=== PATIENT | male | born 1980 | race Caucasian/White ===

== ENCOUNTER 2017-06-27 23:31 | Observation (INO) ==
--- NOTE | 2017-06-28 00:20 | Emergency Department Note ---
Disposition Clinical Impression: Hyperglycemia, Alena, Suicidal ideation, Homicidal ideation, Visual hallucination, Auditory hallucinations Leukocytosis Qualifiers: Leukocytosis type: unspecified Qualified Code(s): D72.829 - Elevated white blood cell count, unspecified Disposition: Admitted As Inpatient Condition: Good Referrals: NONE,PCP [Primary Care Provider] - Forms: ED Satisfaction Letter Time of Disposition: 05:48 Psych HPI - General Chief Complaint: ED Psychiatric Symptoms Stated Complaint: Insomnia/Hearing Voice Time Seen by Provider: 06/27/17 23:52 Source: patient, family Mode of arrival: ambulatory Limitations: no limitations Nursing Notes Reviewed: Yes Vital Signs Reviewed: Yes - History of Present Illness HPI Narrative: Patient is a 37-year-old male with past medical history of a polar disorder, schizophrenia, epilepsy. He presents today accompanied by due to concern for visual and auditory hallucinations, suicidal and homicidal ideation. states that the patient has not slept for more than a few hours over the past week. He was recently given steroids due to rash within the past week at urgent care. Over the past few hours, the patient has become more agitated, believes that his neighbors are making noise that is preventing him from sleeping. He says he feels like hurting himself or his neighbors. states that the neighbors were not making any noise and that he is hearing and seeing things, has been talking to himself for the past 24 hours. She does state that he is supposed to take Lamictal daily for seizures but has not been taking appropriately. She states that his bottle is almost completely full. He also has diazepam that he takes occasionally as needed. She denies that he is on any daily bipolar or schizophrenia medications. She does admit that the patient has had multiple admissions to psychiatric services both here and at other hospitals in the past. Otherwise, no other somatic complaints, denies any chest pain, shortness of breath, nausea, vomiting, diarrhea, abdominal pain. No attempt at self-harm or congestion. - Related Data Home Medications Medication Instructions Recorded Confirmed diazePAM [Valium] 10 mg PO DAILY 10/06/15 10/06/15 Previous Rx's Medication Instructions Recorded LevETIRAcetam [Keppra] 500 mg PO BID 30 Days tablet 10/06/15 predniSONE [PredniSONE] 10 - 60 mg PO DAILY #42 tablet 06/18/17 Allergies Allergy/AdvReac Type Severity Reaction Status Date / Time risperidone Allergy See Verified 06/27/17 23:47 Comments All systems ED: reviewed and negative except as stated. Constitutional: Denies: fever Cardiovascular: Denies: chest pain Respiratory: Denies: cough, dyspnea Gastrointestinal: Denies: abdominal pain, nausea, vomiting, diarrhea Genitourinary: Denies: urgency, dysuria, frequency, hematuria Neurological: Denies: weakness, numbness, paresthesias Psychiatric: Reports: suicidal thoughts, homicidal thoughts, auditory hallucinations, visual hallucinations Past Medical History - Past Medical History Attestation: Yes The following information was validated with the patient. Source: patient Medical history: Reports: hypertension, seizures Psychiatric history: Reports: anxiety, bipolar, depression, schizophrenia, previous psychiatric hospitalization - Social History Smoking Status: Former smoker Smokeless Tobacco Status: No Alcohol use: Reports: occasionally Drug use: Reports: none Physical Exam - General Limitations: other General appearance: alert, in no apparent distress, anxious - Head Head exam: atraumatic, normocephalic, normal inspection - Eye Eye exam: Present: normal appearance, PERRL, EOMI - ENT ENT exam: normal exam, normal oropharynx, mucous membranes moist - Neck Neck exam: Present: normal inspection, full ROM, trachea midline - Chest Chest inspection: Present: normal inspection, symmetric chest wall rise - Respiratory Respiratory exam: Present: normal lung sounds bilaterally - Cardiovascular Cardiovascular exam: Present: regular rate, normal rhythm, normal heart sounds - Abdominal Exam Abdominal exam: Present: soft, Non-Tender. Absent: tenderness, distention, guarding, rebound, rigidity - Extremities Exam Extremities exam: Present: normal inspection, full ROM. Absent: tenderness, pedal edema - Neurological Exam Neurological exam: Present: alert, oriented X3 - Psychiatric Psychiatric exam: Present: anxious, manic, homicidal ideation, suicidal ideation , other (Patient is manic, is having paranoid delusions, admits that he is homicidal, suicidal, hearing voices and having visual hallucinations.) - Skin Skin exam: Present: warm, dry, intact, normal color Course Course Narrative: Patient is manic, is having paranoid delusions, admits that he is homicidal, suicidal, hearing voices and having visual hallucinations. Patient is tachycardic, hypertensive. Otherwise, the rest of the physical exam was benign. Lungs clear to auscultation, abdomen soft and benign. We will perform medical clearance labs and then consult psychiatric services. [facility] slip has been signed and placed on chart. Sitter ordered. 05:48 patient has been seen and evaluated by behavioral health. They have spoke with Dr. Roldan, psychiatrist, who feels that patient needs to be admitted for medical clearance. I spoke with Dr. Roldan myself. He was concerned for Frederick-Panda syndrome. However, the patient currently has no rash, he does not have any mucosal involvement either. This was discussed with psychiatrist who still had concern for SJS. He feels that steroids may be playing a part in current presentation, concerned for steroid delirium at this time. He recommends medical admission at this time for further care. Patient does have a leukocytosis, elevated hemoglobin, creatinine 1.31 that are all likely secondary to dehydration and hemoconcentration. He also has a glucose of 218. I gave the patient 1 L fluid bolus. Otherwise, no other majorly concerning labs. We will admit to the hospitalist for further care. Vital Signs Temperature 98.8 F 06/27/17 23:40 Pulse Rate 122 06/27/17 23:40 Respiratory Rate 18 06/27/17 23:40 Blood Pressure 178/106 06/27/17 23:40 O2 Sat by Pulse Oximetry 96 06/27/17 23:40 Temperature 98.8 F 06/27/17 23:40 Pulse Rate 98 06/28/17 03:24 Respiratory Rate 16 06/28/17 03:24 Blood Pressure 172/97 06/28/17 03:24 O2 Sat by Pulse Oximetry 97 06/28/17 03:24 Oxygen Delivery Oxygen Delivery Room Air Psych - MDM Narrative Medical decision making narrative: Patient is manic, is having paranoid delusions, admits that he is homicidal, suicidal, hearing voices and having visual hallucinations. Patient is tachycardic, hypertensive. Otherwise, the rest of the physical exam was benign. Lungs clear to auscultation, abdomen soft and benign. We will perform medical clearance labs and then consult psychiatric services. [facility] slip has been signed and placed on chart. Sitter ordered. 05:48 patient has been seen and evaluated by [facility]. They have spoke with Dr. Roldan, psychiatrist, who feels that patient needs to be admitted for medical clearance. I spoke with Dr. Roldan myself. He was concerned for Frederick-Panda syndrome. However, the patient currently has no rash, he does not have any mucosal involvement either. This was discussed with psychiatrist who still had concern for SJS. He feels that steroids may be playing a part in current presentation, concerned for steroid delirium at this time. He recommends medical admission at this time for further care. Patient does have a leukocytosis, elevated hemoglobin, creatinine 1.31 that are all likely secondary to dehydration and hemoconcentration. He also has a glucose of 218. I gave the patient 1 L fluid bolus. Otherwise, no other majorly concerning labs. We will admit to the hospitalist for further care. - Medical Records Medical records reviewed: Yes I reviewed the patient's medical records. - Lab Data Lab results reviewed: Yes I reviewed the patient's lab results. Result diagrams: 06/28/17 00:20 06/28/17 00:20 Lab Results 06/28/17 06/28/17 06/28/17 Range/Units 00:07 00:07 00:20 WBC 15.1 H (4.3-11.1) K/mcL RBC 5.60 H (4.19-5.50) M/mcL Hgb 17.9 H (12.9-16.9) g/dL Hct 50.6 H (37.5-50.1) % MCV 90.4 (83.0-100.0) fL MCH 32.0 (28.0-33.3) pg MCHC 35.4 (31.6-35.5) g/dL RDW 12.2 (11.5-14.5) % Plt Count 249 (140-400) K/mcL MPV 10.2 (9.4-12.4) fL Immature Gran % 0.7 (0-4) % Seg Neutrophils % 90.8 % Lymphocytes % 5.1 % Monocytes % 2.9 % Eosinophils % 0.1 % Basophils % 0.4 % Neutrophils # 13.7 H (1.6-8.9) K/mcL Lymphocytes # 0.8 (0.6-4.6) K/mcL Monocytes # 0.4 (0.0-1.3) K/mcL Eosinophils # 0.0 (0.0-0.6) K/mcL Basophils # 0.1 (0.0-0.2) K/mcL Sodium (136-145) mEq/L Potassium (3.5-5.1) mEq/L Chloride (98-107) mEq/L Carbon Dioxide (23-29) mEq/L BUN (6-20) mg/dL Creatinine (0.70-1.30) mg/dL Est GFR ( Amer) (> 60) Est GFR (Non-Af Amer) (> 60) BUN/Creatinine Ratio (6-26) Glucose (70-105) mg/dL Calculated Osmolality (280-300) Calcium (8.6-10.3) mg/dL TSH (0.340-5.600) mcIU/mL Urine Color Dark Yellow (Yellow) Urine Clarity Cloudy A (Clear) Urine pH 6.0 (5.0-8.0) pH Units Ur Specific [place] 1.029 H (1.010-1.025) Urine Protein 30 H (Neg-Trace) mg/dL Urine Glucose (UA) Normal (Normal) mg/dL Urine Ketones 15 H (Negative) mg/dL Urine Blood Small H (Negative) Urine Nitrite Negative (Negative) Urine Bilirubin Negative (Negative) Urine Urobilinogen Normal (Normal) mg/dL Ur Leukocyte Esterase Negative (Negative) Urine Microscopic RBC 5-15 H (0-3) per hpf Urine Microscopic WBC 0-3 (0-3) per hpf Ur Squamous Epith Cells Many H (None-Few) per lpf Urine Bacteria None Seen (None-Few) per hpf Hyaline Casts Moderate H (None-Few) per lpf Salicylates (15.0-30.0) mg/dL Urine Opiates Screen Negative (Bjwyal=489) ng/mL Acetaminophen (10-30) mcg/mL Ur Barbiturates Screen Negative (Wyywwq=895) ng/mL Ur Phencyclidine Scrn Negative (Cutoff=25) ng/mL Ur Amphetamines Screen Negative (Bzuive=6813) ng/mL U Benzodiazepines Scrn Positive H (Ibselm=970) ng/mL Urine Cocaine Screen Negative (Cutoff= 300) ng/mL U Marijuana (THC) Screen Negative (Cutoff = 50) ng/mL Ethyl Alcohol (0-10) mg/dL 06/28/17 06/28/17 Range/Units 00:20 00:20 WBC (4.3-11.1) K/mcL RBC (4.19-5.50) M/mcL Hgb (12.9-16.9) g/dL Hct (37.5-50.1) % MCV (83.0-100.0) fL MCH (28.0-33.3) pg MCHC (31.6-35.5) g/dL RDW (11.5-14.5) % Plt Count (140-400) K/mcL MPV (9.4-12.4) fL Immature Gran % (0-4) % Seg Neutrophils % % Lymphocytes % % Monocytes % % Eosinophils % % Basophils % % Neutrophils # (1.6-8.9) K/mcL Lymphocytes # (0.6-4.6) K/mcL Monocytes # (0.0-1.3) K/mcL Eosinophils # (0.0-0.6) K/mcL Basophils # (0.0-0.2) K/mcL Sodium 133 L (136-145) mEq/L Potassium 3.8 (3.5-5.1) mEq/L Chloride 100 (98-107) mEq/L Carbon Dioxide 22 L (23-29) mEq/L BUN 19 (6-20) mg/dL Creatinine 1.31 H (0.70-1.30) mg/dL Est GFR ( Amer) > 60 (> 60) Est GFR (Non-Af Amer) > 60 (> 60) BUN/Creatinine Ratio 15 (6-26) Glucose 218 H (70-105) mg/dL Calculated Osmolality 285 (280-300) Calcium 9.6 (8.6-10.3) mg/dL TSH 1.759 (0.340-5.600) mcIU/mL Urine Color (Yellow) Urine Clarity (Clear) Urine pH (5.0-8.0) pH Units Ur Specific [place] (1.010-1.025) Urine Protein (Neg-Trace) mg/dL Urine Glucose (UA) (Normal) mg/dL Urine Ketones (Negative) mg/dL Urine Blood (Negative) Urine Nitrite (Negative) Urine Bilirubin (Negative) Urine Urobilinogen (Normal) mg/dL Ur Leukocyte Esterase (Negative) Urine Microscopic RBC (0-3) per hpf Urine Microscopic WBC (0-3) per hpf Ur Squamous Epith Cells (None-Few) per lpf Urine Bacteria (None-Few) per hpf Hyaline Casts (None-Few) per lpf Salicylates < 5.0 L (15.0-30.0) mg/dL Urine Opiates Screen (Ulnwrp=299) ng/mL Acetaminophen < 1.0 L (10-30) mcg/mL Ur Barbiturates Screen (Jdtrkc=260) ng/mL Ur Phencyclidine Scrn (Cutoff=25) ng/mL Ur Amphetamines Screen (Apkoul=9365) ng/mL U Benzodiazepines Scrn (Nthgut=628) ng/mL Urine Cocaine Screen (Cutoff= 300) ng/mL U Marijuana (THC) Screen (Cutoff = 50) ng/mL Ethyl Alcohol < 10 (0-10) mg/dL - EKG Data EKG attestation: Yes I reviewed and interpreted this EKG. EKG results narrative: 06/28/2017 at 06:00. Sinus tachycardia. Rate 137. OK 140. QRS 100. QTC 365. No acute ST elevation or depression. Mild left axis deviation. Psychiatric Medical Clearance - Medical Clearance Checklist Medical History: Hyperglycemia (Acute) Leukocytosis (Acute) Alena (Acute) Suicidal ideation (Acute) Homicidal ideation (Acute) Visual hallucination (Acute) Auditory hallucinations (Acute) Generalized seizure (Inactive) Rash and nonspecific skin eruption (Inactive) No Social History Section defined Current Vitals: Last Vital Signs Temp 98.8 F 06/27/17 23:40 Pulse 98 06/28/17 03:24 Resp 16 06/28/17 03:24 BP 172/97 06/28/17 03:24 Pulse Ox 97 06/28/17 03:24 Psychiatric Lab Panel: Drug Levels and Toxicity 06/28/17 06/28/17 00:07 00:20 Urine Opiates Screen Negative Acetaminophen < 1.0 L Ur Barbiturates Screen Negative Ur Phencyclidine Scrn Negative Ur Amphetamines Screen Negative U Benzodiazepines Scrn Positive H Urine Cocaine Screen Negative U Marijuana (THC) Screen Negative Ethyl Alcohol < 10 Abnormal Labs: Abnormal lab results WBC 15.1 K/mcL (4.3-11.1) H 06/28/17 00:20 RBC 5.60 M/mcL (4.19-5.50) H 06/28/17 00:20 Hgb 17.9 g/dL (12.9-16.9) H 06/28/17 00:20 Hct 50.6 % (37.5-50.1) H 06/28/17 00:20 Neutrophils # 13.7 K/mcL (1.6-8.9) H 06/28/17 00:20 Sodium 133 mEq/L (136-145) L 06/28/17 00:20 Carbon Dioxide 22 mEq/L (23-29) L 06/28/17 00:20 Creatinine 1.31 mg/dL (0.70-1.30) H 06/28/17 00:20 Glucose 218 mg/dL (70-105) H 06/28/17 00:20 Urine Clarity Cloudy (Clear) A 06/28/17 00:07 Ur Specific [place] 1.029 (1.010-1.025) H 06/28/17 00:07 Urine Protein 30 mg/dL (Neg-Trace) H 06/28/17 00:07 Urine Ketones 15 mg/dL (Negative) H 06/28/17 00:07 Urine Blood Small (Negative) H 06/28/17 00:07 Urine Microscopic RBC 5-15 per hpf (0-3) H 06/28/17 00:07 Ur Squamous Epith Cells Many per lpf (None-Few) H 06/28/17 00:07 Hyaline Casts Moderate per lpf (None-Few) H 06/28/17 00:07 Salicylates < 5.0 mg/dL (15.0-30.0) L 06/28/17 00:20 Acetaminophen < 1.0 mcg/mL (10-30) L 06/28/17 00:20 U Benzodiazepines Scrn Positive ng/mL (Bifyah=555) H 06/28/17 00:07 Statement of Medical Clearance: I have evaluated the patient, reviewed diagnostic information, and certify that the patient's medical condition is sufficiently stable that transfer to the psychiatric unit does not pose a significant risk of deterioration. S.B.A.R. - S.B.A.R. Situation: Demographics, MOA Background: Presenting Complaint, Relevant PMH, Meds, & Allergies Assessment: Vital Signs, Course and respsone to treatment, Patient/Family Expectation, Pertinant Lab Results, Outstanding Labs Recommendation: Barrier(s) to disposition, Recommendation based on pending studies, treatments, or consults S.B.A.R. Repor Time: 05:51 Attestation Statement - Attestation Attestation: I examined this patient and my medical decision-making was reviewed with the Resident Physician. I agree with the documented findings, disposition and treatment plan as described except to the extent set forth below. Patient to the ED with acute psychosis. Off his bipolar meds. Patient awake in no distress on exam. No physical complaints. Heart regular lungs clear. Flat affect. Plan. Medical clearance and psych eval. Patient medically cleared. Evaluated by psych. Discussed with the psychiatrist Dr. Morales who wants him admitted medically. He states he thinks that he is having a reaction to Lamictal. He thinks that he has Frederick-Panda 's that is masked by the steroids. He thinks the steroids are causing an acute delirium. Patient will be admitted to the hospitalist with psychiatric consult. Patient reevaluated. He has no rash. He has no blistering or ulcerations of the mucosal surfaces.
[2017-06-28 00:21] LABS: Amphetamine Screen,Urine Negative ng/mL (Cutoff=1000); Barbiturate Screen,Urine Negative ng/mL (Cutoff=200); Benzodiazepines Screen,Urine Positive ng/mL (Cutoff=200); Cannabinoid Screen,Urine Negative ng/mL (Cutoff = 50); Cocaine Screen,Urine Negative ng/mL (Cutoff= 300); Opiate Screen,Urine Negative ng/mL (Cutoff=300); Phencyclidine Screen,Urine Negative ng/mL (Cutoff=25)
[2017-06-28 00:27] LABS: Basophils # 0.1 K/mcL (0.0-0.2); Basophils % 0.4 %; Eosinophils % 0.1 %; Hematocrit 50.6 % (37.5-50.1); Hemoglobin 17.9 g/dL (12.9-16.9); Immature Granulocytes % 0.7 % (0-4); Lymphocytes # 0.8 K/mcL (0.6-4.6); Lymphocytes % 5.1 %; Mean Corpuscular HGB Conc 35.4 g/dL (31.6-35.5); Mean Corpuscular Volume 90.4 fL (83.0-100.0); Mean Platelet Volume 10.2 fL (9.4-12.4); Monocytes # 0.4 K/mcL (0.0-1.3); Monocytes % 2.9 %; Neutrophils # 13.7 K/mcL (1.6-8.9); Platelet Count 249 K/mcL (140-400); Red Cell Distribution Width 12.2 % (11.5-14.5); Segmented Neutrophils % 90.8 %
[2017-06-28 00:29] LABS: Bilirubin,Urine Negative (Negative); Blood,Urine Small (Negative); Clarity,Urine Cloudy (Clear); Color,Urine Dark Yellow (Yellow); Glucose,Urine (UA) Normal (Normal); Ketones,Urine 15 mg/dL (Negative); Leukocyte Esterase,Urine Negative (Negative); Nitrite,Urine Negative (Negative); Protein,Urine 30 mg/dL (Neg-Trace); Specific Gravity,Urine 1.029 (1.010-1.025); Urobilinogen,Urine Normal (Normal)
[2017-06-28 00:32] LABS: Bacteria,Urine None Seen per hpf (None-Few); Hyaline Casts,Urine Moderate per lpf (None-Few); Squamous Epithelial Cell,Urine Many per lpf (None-Few); WBC,Urine 0-3 per hpf (0-3)
[2017-06-28 00:44] LABS: BUN/Creatinine Ratio 15 (6-26); Blood Urea Nitrogen 19 mg/dL (6-20); Calcium 9.6 mg/dL (8.6-10.3); Carbon Dioxide 22 mEq/L (23-29); Chloride 100 mEq/L (98-107); Glucose 218 mg/dL (70-105); Osmolality,Calculated 285 (280-300); Potassium 3.8 mEq/L (3.5-5.1); Sodium 133 mEq/L (136-145); eGFR For African Americans > 60 (> 60); eGFR For Non-African Americans > 60 (> 60)
[2017-06-28 00:46] LABS: Acetaminophen < 1.0 mcg/mL (10-30); Ethanol < 10 mg/dL (0-10); Salicylate < 5.0 mg/dL (15.0-30.0)
[2017-06-28] MEDS ORDERED: 0.9 % Sodium Chloride 1,000 ML IVC ONE (05:46)
[2017-06-28] MEDS ORDERED: *HR* LORazepam 2 MG/ML VIAL IVP ONE (06:06)
[2017-06-28] MEDS ORDERED: Naloxone 0.4 MG/ML INJ IVP PRN (08:49)
[2017-06-28] MEDS ORDERED: lamoTRIgine 100 MG TABLET PO SCH (09:30)
[2017-06-28] MEDS: diazePAM 10 MG TABLET PO SCH (09:49)
[2017-06-28 10:24] LABS: Basophils % 0.2 %; Hematocrit 48.1 % (37.5-50.1); Immature Granulocytes % 0.5 % (0-4); Lymphocytes # 1.3 K/mcL (0.6-4.6); Lymphocytes % 10.4 %; Mean Corpuscular HGB Conc 35.3 g/dL (31.6-35.5); Mean Corpuscular Volume 90.6 fL (83.0-100.0); Mean Platelet Volume 10.3 fL (9.4-12.4); Monocytes # 0.8 K/mcL (0.0-1.3); Monocytes % 6.7 %; Neutrophils # 10.2 K/mcL (1.6-8.9); Platelet Count 239 K/mcL (140-400); Red Blood Count 5.31 M/mcL (4.19-5.50); Red Cell Distribution Width 12.5 % (11.5-14.5); Segmented Neutrophils % 82.2 %
[2017-06-28 11:01] LABS: BUN/Creatinine Ratio 11 (6-26); Blood Urea Nitrogen 14 mg/dL (6-20); Calcium 9.1 mg/dL (8.6-10.3); Carbon Dioxide 24 mEq/L (23-29); Chloride 105 mEq/L (98-107); Glucose 119 mg/dL (70-105); Hemoglobin A1C 4.7 %; Magnesium 2.1 mg/dL (1.6-2.6); Osmolality,Calculated 288 (280-300); Phosphorous 3.8 mg/dL (2.7-4.5); Potassium 3.7 mEq/L (3.5-5.1); Sodium 138 mEq/L (136-145); eGFR For African Americans > 60 (> 60); eGFR For Non-African Americans > 60 (> 60)
--- NOTE | 2017-06-28 12:35 | Internal Med History&Physical ---
Date of Encounter: 06/28/17 Time of Encounter: 10:42 Assessment and Plan (1) Rash Current visit: Yes Status: Acute nonspecific clinically asymptomatic will closely monitor (2) Leukocytosis Current visit: Yes Status: Acute likely reactive given pt finished steroid course yesterday (06/27/17-information obtain from the records) Pt afebrile, no clinical signs present for underlying infectious etiology continue IV fluids will monitor off abx Restarted pt's home medications Qualifiers: Leukocytosis type: unspecified Qualified Code(s): D72.829 - Elevated white blood cell count, unspecified (3) Auditory hallucinations Current visit: Yes Status: Acute (4) Suicidal ideation Current visit: Yes Status: Acute no suicidal ideation expressed during my evaluation continue bedside sitter awaiting psych follow up (5) Homicidal ideation Current visit: Yes Status: Acute (6) Visual hallucination Current visit: Yes Status: Acute (7) DVT prophylaxis Current visit: Yes Status: Acute heparin SQ Internal Medicine - H&P: HPI Chief complaint: hallucinations/rash Admitted From: Home Plans for Post Hospital Care: Transfer Other History of present illness: Mr. Zhou is a 37 year old male with PMH of bipolar disorder, schizophrenia, and epilepsy who presented to the ER for evaluation of visual and auditory hallucinations, suicidal, and homicidal ideation. He was admitted to medicine service for anterior chest wall rash. Pt recently finished a course of abx and is noted to have leukocytosis and hyperglycemia. Pt seen and examined at bedside. Pt refusing to answer any questions, noted to have mild torso rash. Pt denies any discomfort, itchiness, pain. No clinical signs present concerning for kennedi marciano syndrome (which was the psychiatrist's concern). Past Med Surg Social Fam HX - Past Medical History Medical history: hypertension, seizures Psychiatric history: anxiety, bipolar, depression, schizophrenia, previous psychiatric hospitalization - Social History Smoking Status: Former smoker Smokeless Tobacco Status: No Alcohol use: occasionally Drug use: none Internal Medicine - H&P: Meds diazePAM [Valium] 10 mg PO DAILY 10/06/15 [History] Metoprolol [Lopressor] 25 mg PO DAILY 06/28/17 [History] lamoTRIgine [Lamictal] 100 mg PO BID 06/28/17 [History] predniSONE [PredniSONE] 0 mg PO AD 06/28/17 [History] 3 Allergy/AdvReac Type Severity Reaction Status Date / Time risperidone Allergy See Verified 06/27/17 23:47 Comments All Systems PM: A 10-system review of systems was performed and is negative for pertinent findings except as documented above in the HPI. - Constitutional Constitutional: as per HPI - Constitutional Vitals: Temp Pulse Resp BP Pulse Ox 98.5 F 102 17 147/92 95 06/28/17 08:20 06/28/17 08:20 06/28/17 08:20 06/28/17 08:20 06/28/17 08:20 General appearance: Present: A&O X 3, no acute distress - Head Head exam: Present: atraumatic, normocephalic - Eye Eye exam: Present: conjuntiva pink, sclera anicteric - Respiratory Respiratory exam: Present: CTAB. Absent: respiratory distress, wheezes - Cardiovascular Cardiovascular exam: Present: RRR, +S1, +S2. Absent: diastolic murmur, gallop, rubs, systolic murmur - GI/Abdominal GI/Abdominal exam: Present: normal bowel sounds, soft, no peritoneal signs. Absent: distended, tenderness - Extremities Exam Extremities exam: Present: warm, radial pulses palpable and symmetrical. Absent : calf tenderness, pedal edema - Skin Additional comments: mild erythema noted on anterior neck and chest Internal Med - H&P Results - Labs CBC & Chem 7: 06/28/17 09:56 06/28/17 09:56 Labs: Short CBC 06/28/17 Range/Units 09:56 WBC 12.4 H (4.3-11.1) K/mcL Hgb 17.0 H (12.9-16.9) g/dL Hct 48.1 (37.5-50.1) % Plt Count 239 (140-400) K/mcL Neutrophils # 10.2 H (1.6-8.9) K/mcL BMP 06/28/17 09:56 Sodium 138 Potassium 3.7 Chloride 105 Carbon Dioxide 24 BUN 14 Creatinine 1.23 Glucose 119 H Calcium 9.1
[2017-06-28] MEDS ORDERED: Ziprasidone injection 20 MG/ML VIAL IM ONE ×2 (12:48→14:30)
[2017-06-28] MEDS: *HR* Heparin 5,000 UNIT/ML VIAL SQ SCH ×2 (14:03→23:12)
[2017-06-28] MEDS ORDERED: *HR* LORazepam 2 MG/ML VIAL IVP PRN (15:14)
[2017-06-29] MEDS ORDERED: Haloperidol Lactate 5 MG/ML VIAL IVP ONE (01:28)
[2017-06-29] MEDS ORDERED: Ziprasidone injection 20 MG/ML VIAL IM ONE (01:32)
[2017-06-29] MEDS ORDERED: Haloperidol Lactate 5 MG/ML VIAL ONE (06:18)
[2017-06-29] MEDS ORDERED: *HR* LORazepam 2 MG/ML VIAL IVP ONE (06:20)
[2017-06-29] MEDS: *HR* Heparin 5,000 UNIT/ML VIAL SQ SCH ×2 (06:52→14:01)
[2017-06-29 08:37] LABS: Basophils # 0.1 K/mcL (0.0-0.2); Basophils % 0.6 %; Eosinophils % 0.2 %; Hematocrit 48.1 % (37.5-50.1); Hemoglobin 16.4 g/dL (12.9-16.9); Immature Granulocytes % 0.7 % (0-4); Lymphocytes # 1.7 K/mcL (0.6-4.6); Mean Corpuscular HGB Conc 34.1 g/dL (31.6-35.5); Mean Corpuscular Hemoglobin 31.7 pg (28.0-33.3); Mean Corpuscular Volume 92.9 fL (83.0-100.0); Mean Platelet Volume 10.3 fL (9.4-12.4); Monocytes # 0.8 K/mcL (0.0-1.3); Monocytes % 8.2 %; Neutrophils # 7.3 K/mcL (1.6-8.9); Platelet Count 214 K/mcL (140-400); Red Blood Count 5.18 M/mcL (4.19-5.50); Red Cell Distribution Width 12.4 % (11.5-14.5); Segmented Neutrophils % 73.3 %
[2017-06-29 09:04] LABS: BUN/Creatinine Ratio 11 (6-26); Blood Urea Nitrogen 17 mg/dL (6-20); Carbon Dioxide 25 mEq/L (23-29); Chloride 104 mEq/L (98-107); Glucose 129 mg/dL (70-105); Osmolality,Calculated 291 (280-300); Phosphorous 2.1 mg/dL (2.7-4.5); Potassium 3.6 mEq/L (3.5-5.1); Sodium 139 mEq/L (136-145); eGFR For African Americans > 60 (> 60); eGFR For Non-African Americans 53 (> 60)
[2017-06-29] MEDS: diazePAM 10 MG TABLET PO SCH (09:08)
--- NOTE | 2017-06-29 10:54 | Transfer Summary ---
Date of Encounter: 06/29/17 Time of Encounter: 09:55 Transfer Discharge Sum: Diag - Discharge Diagnosis (1) Rash Status: Acute (2) Leukocytosis Status: Acute (3) Auditory hallucinations Status: Acute (4) Suicidal ideation Status: Acute (5) Homicidal ideation Status: Acute (6) Visual hallucination Status: Acute (7) DVT prophylaxis Status: Acute Transfer Discharge Sum: Med - Medications Active and Home Medications: Home Medications diazePAM [Valium] 10 mg PO DAILY 10/06/15 [History Confirmed 06/28/17] Metoprolol [Lopressor] 25 mg PO DAILY 06/28/17 [History Confirmed 06/28/17] lamoTRIgine [Lamictal] 100 mg PO BID 06/28/17 [History Confirmed 06/28/17] predniSONE [PredniSONE] 0 mg PO AD 06/28/17 [History Confirmed 06/28/17] Active Medications Diazepam (Valium) 10 mg PO DAILY [facility] Stop: 12/28/17 09:31 Last Admin: 06/29/17 09:08 Dose: 10 mg Heparin Sodium (Porcine) (Heparin) 5,000 unit SQ Q8HCO [facility] Stop: 12/28/17 14:01 Last Admin: 06/29/17 06:52 Dose: Not Given Lorazepam (Ativan) 1 mg IVP Q6HR PRN PRN Reason: breakthrough seizures Stop: 12/28/17 15:15 Metoprolol Tartrate (Lopressor) 25 mg PO DAILY [facility] Stop: 12/28/17 09:31 Last Admin: 06/29/17 09:08 Dose: 25 mg Naloxone HCl (Narcan) 0.4 mg IVP Q2MIN PRN PRN Reason: SEE COMMENTS Stop: 12/28/17 08:50 Valproic Acid (Depakene) 250 mg PO BIDWM [facility] Stop: 12/29/17 10:46 Transfer Discharge Sum: Data Procedures and tests throughout hospitalization: Pending Orders 06/28/17 08:49 Peripheral IV [RC] CONT Placement to Observation Routine Vital Signs Assessment [RC] Q4H Naloxone [Narcan] 0.4 mg IVP Q2MIN PRN Resuscitation Status: Active [RES] Routine 06/28/17 09:30 Metoprolol [Lopressor] 25 mg PO DAILY diazePAM [Valium] 10 mg PO DAILY 06/28/17 10:03 Consult to Pe[facility] Picker [CONS] Routine 06/28/17 14:00 Heparin 5,000 unit SQ Q8HCO 06/28/17 15:14 LORazepam [Ativan] 1 mg IVP Q6HR PRN 06/28/17 15:23 Consult to Neurology [CONS] Routine 06/28/17 Breakfast Regular Diet 06/29/17 10:45 Valproic Acid [Depakene] 250 mg PO BIDWM Transfer Discharge Sum: Prov Date of admission: 06/28/17 06:33 Primary care physician: PCP NONE Consults: 06/28/17 10:03 Consult to Pe[facility] Picker [CONS] Routine Reason for SW Consult: possible home needs, after psych eval. 06/28/17 15:23 Consult to Neurology [CONS] Routine Consulting Provider: [facility] Reason for Consult: seizure disorder Call Completed: Yes Discharging clinician: Nora Benz Anticipated date of transfer: 06/29/17 Receiving physician/facility: Inpatient psych [facility] Transfer Discharge Sum: A/P - Plan Disposition: Transfer Other Transfer Discharge Sum: Hosp Hospital course: Mr. Zhou is a 37 year old male with PMH of bipolar disorder, schizophrenia, seizure disorder who presented to the ER with acute manic episode with visual and auditory hallucinations, and suicidal/homicidal ideation. 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 Pt has been noncompliant with his seizure medications ( lamictal) and was noted to have a tonic clonic seizure last week. As per , has one seizure a year. He started taking the lamictal after last week's episode and was noted to have a rash for which he was started on PO steroids. He finished his steroid therapy a day prior to hospitalization. Psychiatrist was concerned about his symptoms being secondary to steroid induced psychosis. Psych evaluation was incomplete yesterday as pt had received Geodone for severe agitation and he was sedated. At this time, pt is calm and AAO x 3. He is to be evaluated by psychiatry as pt is still expressing suicidal ideations. Neurology was consulted for seizure medications. As per Dr. Saha's recommendations, pt to be started on Depakote 250mg twice a day for the first two days followed by 500mg twice a day there after. He will follow the patient as outpatient. (Start date of depakot: 06/29/17) Pt discharge pending psych evaluation/acceptance. Pt's rash has completely resolved. - Time Spent with Patient Total time spent providing and/or coordinating transfer services: Greater than 30 minutes Transfer Discharge Sum: Exam - Constitutional Vitals: Vital Signs Pulse Resp BP 06/29/17 00:24 98 18 153/89 Intake and Output 06/28/17 06/29/17 06/29/17 23:59 07:59 15:59 Intake Total 500 / 500 Output Total 0 / 0 Balance 500 / 500 Intake: Oral 500 / 500 Output: Urine 0 / 0 Other: # Voids 1 General appearance: no acute distress - Head Head exam: Present: atraumatic, normocephalic - Eye Eye exam: Present: conjuntiva pink, sclera anicteric - Respiratory Respiratory exam: Present: CTAB. Absent: respiratory distress, wheezes, tachypnea - Cardiovascular Cardiovascular exam: Present: RRR, +S1, +S2 - GI/Abdominal GI/Abdominal exam: Present: normal bowel sounds, soft. Absent: tenderness - Extremities Exam Extremities exam: Present: normal inspection. Absent: pedal edema, tenderness
[2017-06-29] MEDS: Valproic Acid 250 MG CAPSULE PO SCH ×2 (11:44→17:29)
[2017-06-29 15:41] VITALS: BP 160/98
--- NOTE | 2017-06-29 15:49 | Consult Note ---
Date of Encounter: 06/29/17 Time of Encounter: 15:36 History of Present Illness Requesting Physician: Nora Benz MD History of present illness: Mr. Zhou is a 37 year old male, , with a h/o Bipolar disorder, h/o inpatient hospitalization. h/o medication noncompliance, medical h/o seixure disorder. last seen by psychiatrist years ago. admitted to medicine following reaction to steroid treatment following new onset rash. Patient seen at bedside in the presence of the . He was laying comfortably in bed in no acute distress. Most part of his hx taken from the . Patient observed during his eval responding to internal stimuli and admitted to hearing voices. stated patient was previously stabilized on Abilify but stopped taking his medications months ago because he was doing well. Per his , patient had acute rash before restarting Lamictal and denied rash was due to lamictal. Patient also reported prior poor tolerance to Depakote hence does not wish to be on it. He agreed to restarted Abilify due to prior good effect and tolerance. Patient is psychiatrically unstable at present time and will benefit from inpatient hospitalization for stabilization after he is medically stable. Diagnosis: Unspecified Psychosis Bipolar 1 disorder jeannine with psychotic feature Recommendation: Transfer to the inpatient unit after medically cleared. Cont Geodon 40mg PRN for severe agitation Start Abiliy 5mg daily CC: Nora Benz MD Past Med Surg Social Fam HX - Past Medical History Medical history: hypertension, seizures - Past Psychiatric History Psychiatric history: Reports: bipolar - Social History Smoking Status: Former smoker Smokeless Tobacco Status: No Alcohol use: occasionally Drug use: none Medications & Allergies diazePAM [Valium] 10 mg PO DAILY 10/06/15 [History] Metoprolol [Lopressor] 25 mg PO DAILY 06/28/17 [History] lamoTRIgine [Lamictal] 100 mg PO BID 06/28/17 [History] predniSONE [PredniSONE] 0 mg PO AD 06/28/17 [History] 3 Allergy/AdvReac Type Severity Reaction Status Date / Time risperidone Allergy See Verified 06/27/17 23:47 Comments Review of Systems Psychiatric: Reports: auditory hallucinations, visual hallucinations Mental Status Exam Patient orientation: Yes Person, Yes Place Level of alertness: Alert Patient appearance: Appropriate Behavior: calm Psychomotor activity: Normal Eye contact: Maintains Eye Contact Mood description: Other Affect description: congruent with mood Speech pattern: Normal rate Speech volume: Soft/Quiet Thought process: Logical, Goal Oriented Thought content: Yes Intact Perceptual disturbances: Yes Auditory hallucinations, Yes Visual hallucinations Patient reliability: Questionable Historian Intelligence estimate: Average Judgment: Poor Insight: Minimal Results - Vital Signs Vital signs: Temp Pulse Resp BP Pulse Ox 98.5 F 98 18 144/91 95 06/28/17 08:20 06/29/17 00:24 06/29/17 00:24 06/29/17 11:48 06/28/17 08:20 - Labs Labs: Laboratory Last Values WBC 10.0 K/mcL (4.3-11.1) 06/29/17 07:51 RBC 5.18 M/mcL (4.19-5.50) 06/29/17 07:51 Hgb 16.4 g/dL (12.9-16.9) 06/29/17 07:51 Hct 48.1 % (37.5-50.1) 06/29/17 07:51 MCV 92.9 fL (83.0-100.0) 06/29/17 07:51 MCH 31.7 pg (28.0-33.3) 06/29/17 07:51 MCHC 34.1 g/dL (31.6-35.5) 06/29/17 07:51 RDW 12.4 % (11.5-14.5) 06/29/17 07:51 Plt Count 214 K/mcL (140-400) 06/29/17 07:51 MPV 10.3 fL (9.4-12.4) 06/29/17 07:51 Immature Gran % 0.7 % (0-4) 06/29/17 07:51 Seg Neutrophils % 73.3 % 06/29/17 07:51 Lymphocytes % 17.0 % 06/29/17 07:51 Monocytes % 8.2 % 06/29/17 07:51 Eosinophils % 0.2 % 06/29/17 07:51 Basophils % 0.6 % 06/29/17 07:51 Neutrophils # 7.3 K/mcL (1.6-8.9) 06/29/17 07:51 Lymphocytes # 1.7 K/mcL (0.6-4.6) 06/29/17 07:51 Monocytes # 0.8 K/mcL (0.0-1.3) 06/29/17 07:51 Eosinophils # 0.0 K/mcL (0.0-0.6) 06/29/17 07:51 Basophils # 0.1 K/mcL (0.0-0.2) 06/29/17 07:51 Sodium 139 mEq/L (136-145) 06/29/17 07:51 Potassium 3.6 mEq/L (3.5-5.1) 06/29/17 07:51 Chloride 104 mEq/L (98-107) 06/29/17 07:51 Carbon Dioxide 25 mEq/L (23-29) 06/29/17 07:51 BUN 17 mg/dL (6-20) 06/29/17 07:51 Creatinine 1.49 mg/dL (0.70-1.30) H 06/29/17 07:51 Est GFR ( Amer) > 60 (> 60) 06/29/17 07:51 Est GFR (Non-Af Amer) 53 (> 60) L 06/29/17 07:51 BUN/Creatinine Ratio 11 (6-26) 06/29/17 07:51 Glucose 129 mg/dL (70-105) H 06/29/17 07:51 Est Mean Plasma Glucose 88 mg/dl 06/28/17 09:56 Hemoglobin A1c 4.7 % (-5.6) 06/28/17 09:56 Calculated Osmolality 291 (280-300) 06/29/17 07:51 Calcium 9.0 mg/dL (8.6-10.3) 06/29/17 07:51 Phosphorus 2.1 mg/dL (2.7-4.5) L 06/29/17 07:51 Magnesium 2.0 mg/dL (1.6-2.6) 06/29/17 07:51 TSH 1.759 mcIU/mL (0.340-5.600) 06/28/17 00:20 Urine Color Dark Yellow (Yellow) 06/28/17 00:07 Urine Clarity Cloudy (Clear) A 06/28/17 00:07 Urine pH 6.0 pH Units (5.0-8.0) 06/28/17 00:07 Ur Specific [place] 1.029 (1.010-1.025) H 06/28/17 00:07 Urine Protein 30 mg/dL (Neg-Trace) H 06/28/17 00:07 Urine Glucose (UA) Normal mg/dL (Normal) 06/28/17 00:07 Urine Ketones 15 mg/dL (Negative) H 06/28/17 00:07 Urine Blood Small (Negative) H 06/28/17 00:07 Urine Nitrite Negative (Negative) 06/28/17 00:07 Urine Bilirubin Negative (Negative) 06/28/17 00:07 Urine Urobilinogen Normal mg/dL (Normal) 06/28/17 00:07 Ur Leukocyte Esterase Negative (Negative) 06/28/17 00:07 Urine Microscopic RBC 5-15 per hpf (0-3) H 06/28/17 00:07 Urine Microscopic WBC 0-3 per hpf (0-3) 06/28/17 00:07 Ur Squamous Epith Cells Many per lpf (None-Few) H 06/28/17 00:07 Urine Bacteria None Seen per hpf (None-Few) 06/28/17 00:07 Hyaline Casts Moderate per lpf (None-Few) H 06/28/17 00:07 Salicylates < 5.0 mg/dL (15.0-30.0) L 06/28/17 00:20 Urine Opiates Screen Negative ng/mL (Xzhizb=823) 06/28/17 00:07 Acetaminophen < 1.0 mcg/mL (10-30) L 06/28/17 00:20 Ur Barbiturates Screen Negative ng/mL (Nbcubi=410) 06/28/17 00:07 Ur Phencyclidine Scrn Negative ng/mL (Cutoff=25) 06/28/17 00:07 Ur Amphetamines Screen Negative ng/mL (Tojefj=6201) 06/28/17 00:07 U Benzodiazepines Scrn Positive ng/mL (Qkctby=727) H 06/28/17 00:07 Urine Cocaine Screen Negative ng/mL (Cutoff= 300) 06/28/17 00:07 U Marijuana (THC) Screen Negative ng/mL (Cutoff = 50) 06/28/17 00:07 Ethyl Alcohol < 10 mg/dL (0-10) 06/28/17 00:20 Consult Discharge Plan - Plan Referrals: NONE,PCP [Primary Care Provider] -
[2017-06-29] MEDS ORDERED: Acetaminophen 325 MG TABLET PO ONE (17:32)
--- NOTE | 2017-06-30 07:38 | Electrocardiograph Report ---
[address] [address] Test Date: 2017-06-28 Pat Name: Drew Zhou Department: 102 Room: 2A11 Gender: M House Calls Nurse: Ekp : [id number] Requested By: Corrie See Order Number: [id number] Reading MD: Figueroa Jacobo MD Measurements Intervals [place] Rate: 137 P: 18 [place]: 140 QRS: -2 QRSD: 100 T: 3 QT: 285 QTc: 365 Interpretive Statements SINUS TACHYCARDIA Poor R wave progression BASELINE ARTIFACT Electronically Signed On 06-30-2017 7:36:21 EST by Figueroa Jacobo MD
== END 2017-06-29 18:30 ==
LOC: 2ANU 23:31 → EMEROO 23:31 → 2ANU 06-28 07:09
PROVIDERS: ADMIT Family Medicine; ATTEND Internal Medicine

== ENCOUNTER 2017-06-29 18:35 | Inpatient (IN) ==
[2017-06-29] MEDS ORDERED: MOM Conc 10 ML UD.LIQ PO PRN (18:54)
[2017-06-29] MEDS ORDERED: hydrOXYzine pamoate 25 MG CAPSULE PO PRN (18:54)
[2017-06-29] MEDS ORDERED: Haloperidol Lactate 5 MG/ML VIAL IM PRN (18:54)
[2017-06-29] MEDS ORDERED: *HR* LORazepam 1 MG TABLET PO PRN (18:54)
[2017-06-29] MEDS ORDERED: Mag Hydrox/Al Hydrox/Simeth 30 ML UDC PO PRN (18:54)
[2017-06-29] MEDS ORDERED: *HR* LORazepam 2 MG/ML VIAL IM PRN (18:54)
[2017-06-29] MEDS ORDERED: Acetaminophen 325 MG TABLET PO PRN (18:54)
[2017-06-29] MEDS ORDERED: diazePAM 10 MG TABLET PO PRN (19:08)
[2017-06-29] MEDS ORDERED: Ziprasidone 20 MG CAPSULE PO PRN (19:10)
[2017-06-29] MEDS: ARIPiprazole 5 MG TABLET PO SCH (21:05)
[2017-06-29] MEDS: traZODone 50 MG TABLET PO PRN (21:05)
--- NOTE | 2017-06-29 22:42 | Neurology - Consult Note ---
Date of Encounter: 06/29/17 Time of Encounter: 04:20 Assessment and Plan (1) History of seizure disorder Current Visit: Yes Status: Acute This patient will apparently had an history of seizure disorder overall seems to be stable and did not have frequent seizures except one recently most of the seizures are usually about once a year. He has been evaluated by neurology in the past with negative MRI of the brain as well as -24 hours ambulatory EEG. He was on lamotrigine but apparently been taking off and on and not being compliant with the medication. Though there was a concern that he should not has a rash that could be related to the lamotrigine but according to the that he had a rash before even taking the medication though at this time it is not clear that are often of how frequently he was taking the medication as lamotrigine is very well known to cause a rash especially when not taking it on a regular basis and especially after taking a higher dose all of a sudden. Certainly he would not be a good candidate for lamotrigine have suggested that he should stay off it. With his history of seizure disorder but it is same time with significant bipolar issues he probably would benefit from an anticonvulsant medication that would not help his mood disorder as well. Depakote would be another choice as well as carbamazepine. He had been on Trileptal in the past but it was discontinued by himself. At this time I would recommend that he could be tried on either Depakote or Trileptal Depending on the choice from his psychiatrist As both are good anticonvulsant medication would probably help him seizures, though at this time he would require help with his mood and behavior more than seizures (2) Auditory hallucinations Current Visit: No Status: Acute History of Present Illness HPI: Mr. Zhou is a 37 year old male with a h/o Bipolar disorder, h/o inpatient hospitalization. h/o medication noncompliance, medical h/o seizure disorder. last seen by psychiatrist years ago. admitted to medicine following reaction to steroid treatment following new onset rash. Patient seen at bedside in the presence of the . Most part of his hx taken from the . Per his , patient had acute rash before restarting Lamictal and denied rash was due to lamictal. Patient also reported prior poor tolerance to Depakote, was on TRILEPTAL in past, but stop taking it some time ago. The patient he has an history of seizures in the past and apparently had seizures about once a year mostly around September , but this time he did have a seizure-like activity about a week ago. Mostly he started jerking and shaking lasted for a few minutes and then resolve spontaneously usually he has a headache afterwards and then very tired and sleepy for the rest of the day. Now he is also having issues with his bipolar disorder and behavioral issues and having active hallucination already been evaluated by psychiatry perhaps may benefit from inpatient hospitalization. He was on Lamictal for some time but not been taking it on a regular basis. Past Med Surg Social Fam HX - Past Medical History Medical history: hypertension, seizures Psychiatric history: bipolar - Social History Smoking Status: Former smoker Smokeless Tobacco Status: No Alcohol use: occasionally Drug use: none - Family History Father Hx Family GI Disorders: Yes ("obesity") Medications and Allergies diazePAM [Valium] 10 mg PO DAILY 10/06/15 [History] Metoprolol [Lopressor] 25 mg PO DAILY 06/28/17 [History] lamoTRIgine [Lamictal] 100 mg PO BID 06/28/17 [History] predniSONE [PredniSONE] 0 mg PO AD 06/28/17 [History] 3 Allergy/AdvReac Type Severity Reaction Status Date / Time risperidone Allergy See Verified 06/27/17 23:47 Comments All Systems: A 10-system review of systems was performed and is negative for pertinent findings except as documented above in the HPI. Physical Examination - Vital Signs Vital Signs: Initial Vital Signs Temp Pulse Resp BP 98.6 F 81 18 145/99 06/29/17 20:36 06/29/17 20:36 06/29/17 20:36 06/29/17 20:36 - Constitutional General appearance: comfortable - Neurologic Detailed motor examination: full strength in all major muscle groups Detailed sensory examination: intact Reflex and gait examination: intact Reflexes: Biceps: 1+, Triceps: 1+, Brachioradialis: 1+, Patella: 1+, Achilles: 1 + Mental Status Examination: awake, alert, oriented to person, oriented to place, follows commands appropriately, answers questions appropriately Cranial nerve examination: PERRL, EOMI, visual patel intact, mastication intact , no facial asymmetry is present Cerebellar examination: no dysmetria (pt ahs flat affect not much speech out put ) Results - Diagnostic Findings Additional findings: MRI of brain in 2016 was normal as well as CT of head
[2017-06-30] MEDS: Vitamin B Complex/Vit C/Vit E 1 EACH TABLET PO SCH (08:42)
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
[2017-06-30] MEDS: diazePAM 5 MG TABLET PO SCH ×2 (16:25→22:03)
[2017-06-30] MEDS: traZODone 50 MG TABLET PO PRN (22:02)
[2017-06-30] MEDS: OXcarbazepine 150 MG TABLET PO SCH (22:02)
[2017-06-30] MEDS: ARIPiprazole 5 MG TABLET PO SCH (22:02)
[2017-07-01] MEDS: Vitamin B Complex/Vit C/Vit E 1 EACH TABLET PO SCH (08:56)
[2017-07-01] MEDS: OXcarbazepine 150 MG TABLET PO SCH ×3 (08:56→21:56)
[2017-07-01] MEDS: diazePAM 5 MG TABLET PO SCH ×4 (08:57→22:38)
[2017-07-01] MEDS: ARIPiprazole 10 MG TABLET PO SCH (08:57)
--- NOTE | 2017-07-01 11:43 | Psychiatry Progress Note ---
Date of Encounter: 07/01/17 Time of Encounter: 11:30 Subjective Interval history: Patient has been dk to sleep. he complains of a small lesion on the tongue. He says he does not want to take medications becauseof concerns about "tardive dyskinesia". I told him of 2 treatment for TD, Luciana, Yaquelin. He complians of dry mouth. He is feeling bored. He is on disability. he visited with last night. Review of Systems Ears, Nose, Throat: Reports: other (tongue pain) Objective: Exam Patient orientation: Yes Person, Yes Time, Yes Place, Yes Circumstance Level of alertness: Alert Patient appearance: Well Groomed Behavior: restless, impulsive Psychomotor activity: Normal Eye contact: Fleeting Contact Mood description: Expansive Affect description: congruent with mood Speech pattern: Disorganized, Inappropriate to situation Speech volume: Whispering, No variation in volume Thought process: Flight of Ideas, Thought Blocking, Disorganized Thought content: Yes Ideas of reference, Yes Thought broadcasting Perceptual disturbances: Yes Reacting to internal stimuli Judgment: Poor Insight: None Results - Vital Signs Vital Signs: Temp Pulse Resp BP 98.4 F 94 18 138/102 07/01/17 09:00 07/01/17 09:00 07/01/17 09:00 07/01/17 09:00 Assessment and Plan (1) Bipolar disorder, current episode manic severe with psychotic features Current visit: Yes Status: Acute Additional Plan: onitnue current meds. Risks, benefits, side effects, alternatives discussed w/pt: Yes Patient agreeable to treatment: Yes (2) Noncompliance w/medication treatment due to intermit use of medication Current visit: Yes Status: Acute Additional Plan: Mansoor mota discused, he was worried about payment. Risks, benefits, side effects, alternatives discussed w/pt: Yes Patient agreeable to treatment: Yes (3) H/O idiopathic urticaria Current visit: Yes Status: Resolved Risks, benefits, side effects, alternatives discussed w/pt: No Patient agreeable to treatment: No (4) Antipsychotics, neuroleptics, and major tranquilizers causing adverse effect in therapeutic use Current visit: Yes Status: Resolved Additional Plan: no eveidence of TD on todays exam. Risks, benefits, side effects, alternatives discussed w/pt: Yes Patient agreeable to treatment: Yes Qualifiers: Encounter type: sequela Qualified Code(s): T43.505S - Adverse effect of unspecified antipsychotics and neuroleptics, sequela Consult Discharge Plan - Plan Referrals: NONE,PCP [Primary Care Provider] -
[2017-07-01] MEDS: ARIPiprazole 5 MG TABLET PO SCH (21:19)
[2017-07-01] MEDS: traZODone 50 MG TABLET PO PRN (21:57)
[2017-07-02] MEDS: diazePAM 5 MG TABLET PO SCH ×3 (09:09→20:29)
[2017-07-02] MEDS: ARIPiprazole 10 MG TABLET PO SCH (09:09)
[2017-07-02] MEDS: Vitamin B Complex/Vit C/Vit E 1 EACH TABLET PO SCH (09:09)
[2017-07-02] MEDS: OXcarbazepine 150 MG TABLET PO SCH ×2 (09:09→20:29)
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
[2017-07-02] MEDS: Benzocaine 20% 9 GM GEL..GRAM. TP PRN (14:38)
[2017-07-02] MEDS: traZODone 50 MG TABLET PO PRN (20:29)
[2017-07-03] MEDS: Vitamin B Complex/Vit C/Vit E 1 EACH TABLET PO SCH (08:51)
[2017-07-03] MEDS: diazePAM 5 MG TABLET PO SCH ×3 (08:51→21:00)
[2017-07-03] MEDS: OXcarbazepine 150 MG TABLET PO SCH ×2 (08:51→21:00)
[2017-07-03] MEDS ORDERED: ARIPiprazole 10 MG TABLET PO SCH (09:00)
--- NOTE | 2017-07-03 14:24 | Psychiatry Progress Note ---
Date of Encounter: 07/03/17 Time of Encounter: 14:15 Subjective Interval history: The patient is willing ot take 1 injeciton of long acting. No side effect to abilify. Still want to get a job. He is feeling overwhelmed in the hospital. he was jealous of his , he make her turn in his cellphone. He was worried about his 's fidelity. He says he has not had asiezure in 3 years. he does have bite on the tongue. he will take the oragel, and it feels better. he sleeps better, he is on ambien. Review of Systems Psychiatric: Reports: irritability Objective: Exam Patient orientation: Yes Person, Yes Time, Yes Place, Yes Circumstance Level of alertness: Alert Patient appearance: Well Groomed Behavior: agitated, impulsive, talkative Psychomotor activity: Increased Eye contact: Maintains Eye Contact Mood description: Expansive, Irritable Affect description: euphoric Speech pattern: Normal rate, Normal rhythm, Rambling, Repetitive Speech volume: Normal Thought process: Circumstantial, Tangential, Perseveration Thought content: Yes Ideas of reference, Yes Preoccupation, Yes Paranoid delusion Perceptual disturbances: Yes Reacting to internal stimuli Judgment: Poor Insight: None Results - Vital Signs Vital Signs: Temp Pulse Resp BP 98 F 80 16 129/92 07/03/17 09:00 07/03/17 09:00 07/03/17 09:00 07/03/17 09:00 Assessment and Plan (1) Bipolar disorder, current episode manic severe with psychotic features Current visit: Yes Status: Acute Plan: Continue hospitalization, Suicide Precautions per unit protocol, Encourage participation in unit milieu, Monitor sleep Risks, benefits, side effects, alternatives discussed w/pt: Yes Patient agreeable to treatment: Yes (2) Noncompliance w/medication treatment due to intermit use of medication Current visit: Yes Status: Acute Plan: Continue hospitalization, Close observation Risks, benefits, side effects, alternatives discussed w/pt: Yes (agrees to one injection) Patient agreeable to treatment: Yes (3) H/O idiopathic urticaria Current visit: Yes Status: Resolved Risks, benefits, side effects, alternatives discussed w/pt: No Patient agreeable to treatment: No (4) Antipsychotics, neuroleptics, and major tranquilizers causing adverse effect in therapeutic use Current visit: Yes Status: Resolved Plan: Continue hospitalization, Close observation Risks, benefits, side effects, alternatives discussed w/pt: Yes (no abnormalities) Patient agreeable to treatment: Yes Qualifiers: Encounter type: sequela Qualified Code(s): T43.505S - Adverse effect of unspecified antipsychotics and neuroleptics, sequela (5) Epilepsy Current visit: Yes Status: Acute Risks, benefits, side effects, alternatives discussed w/pt: Yes (stay on trileptal) Patient agreeable to treatment: Yes Qualifiers: Epilepsy type: generalized idiopathic Intractability: not intractable Status epilepticus: without status epilepticus Qualified Code(s): G40.309 - Generalized idiopathic epilepsy and epileptic syndromes, not intractable, without status epilepticus Consult Discharge Plan - Plan Referrals: Tesfaye Sena [facility] [Outside] - 07/14/17 2:00 pm (The above appointment is with Chetan Barajas for outpatient mental health counseling services. You will also see Dai Hankins for outpatient psychiatric assessment and medication management services on 07/30/2017 at 10:00am.)
[2017-07-03] MEDS: Benzocaine 20% 9 GM GEL..GRAM. TP PRN (17:26)
[2017-07-04] MEDS: diazePAM 5 MG TABLET PO SCH ×3 (08:49→21:52)
[2017-07-04] MEDS: Vitamin B Complex/Vit C/Vit E 1 EACH TABLET PO SCH (08:49)
[2017-07-04] MEDS: OXcarbazepine 150 MG TABLET PO SCH ×2 (08:50→21:52)
[2017-07-04] MEDS: ARIPiprazole 10 MG TABLET PO SCH (08:50)
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
[2017-07-05] MEDS: ARIPiprazole 10 MG TABLET PO SCH (08:45)
[2017-07-05] MEDS: Vitamin B Complex/Vit C/Vit E 1 EACH TABLET PO SCH (08:45)
[2017-07-05] MEDS: diazePAM 5 MG TABLET PO SCH ×3 (08:46→21:05)
[2017-07-05] MEDS: OXcarbazepine 150 MG TABLET PO SCH ×2 (08:46→21:04)
--- NOTE | 2017-07-05 10:14 | Psychiatry Progress Note ---
Date of Encounter: 07/05/17 Time of Encounter: 10:09 Subjective Interval history: Client is still psychotic but he has been medication compliant and he seems to be improving. has been visiting and staff indicated she said client is improving. Client is still paranoid about the neighbors but was not talking about them in a threatening manner today. Sounds like a longstanding delusion. Discussed long acting injection which client states he is not interested in. Has a history of TD so meds make him nervous. Outpatient provider has been contacted about long acting Abilify but client is not wanting it here in the hospital. Will continue with oral Abilify for now. 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 Actually has a probate hearing scheduled for later this week. Hopefully that will not be necessary as he is showing some improvement. Review of Systems Constitutional: Denies: fever, chills, weakness, weight change Eyes: Denies: eye pain, vision change Ears, Nose, Throat: Denies: ear pain, throat pain, dental pain, hearing loss, congestion Cardiovascular: Denies: chest pain, palpitations, dyspnea on exertion Respiratory: Denies: cough, dyspnea, wheezes Gastrointestinal: Denies: abdominal pain, nausea, vomiting, diarrhea, constipation Musculoskeletal: Denies: joint swelling, joint pain Neurological: Denies: headache, weakness, numbness, memory loss Psychiatric: Reports: irritability Objective: Exam Patient orientation: Yes Person, Yes Time, Yes Place Level of alertness: Alert Patient appearance: Appropriate Behavior: calm, cooperative Psychomotor activity: Normal Eye contact: Intense Contact Mood description: Irritable Affect description: blunted Speech pattern: Normal rate, Normal rhythm, Normal tone Speech volume: Normal Thought process: Linear Thought content: No Suicidal ideation, No Homicidal ideation, Yes Overt delusions, Yes Paranoid delusion Perceptual disturbances: No Auditory hallucinations, No Visual hallucinations Judgment: Limited Insight: Minimal Results - Vital Signs Vital Signs: Temp Pulse Resp BP 97.6 F 80 16 137/90 07/05/17 09:41 07/05/17 09:41 07/05/17 09:41 07/05/17 09:41 Assessment and Plan (1) Bipolar disorder, current episode manic severe with psychotic features Current visit: Yes Status: Acute Plan: Continue hospitalization, Close observation, Suicide Precautions per unit protocol, Encourage participation in unit milieu, Group Therapy, Monitor sleep, Monitor appetite Risks, benefits, side effects, alternatives discussed w/pt: Yes Patient agreeable to treatment: Yes (2) Antipsychotics, neuroleptics, and major tranquilizers causing adverse effect in therapeutic use Current visit: Yes Status: Resolved Plan: Continue hospitalization, Close observation, Suicide Precautions per unit protocol, Encourage participation in unit milieu, Group Therapy, Monitor sleep, Monitor appetite Risks, benefits, side effects, alternatives discussed w/pt: Yes (no abnormalities) Patient agreeable to treatment: Yes Qualifiers: Encounter type: sequela Qualified Code(s): T43.505S - Adverse effect of unspecified antipsychotics and neuroleptics, sequela (3) Epilepsy Current visit: Yes Status: Acute Plan: Continue hospitalization, Close observation, Suicide Precautions per unit protocol, Encourage participation in unit milieu, Group Therapy, Monitor sleep, Monitor appetite Risks, benefits, side effects, alternatives discussed w/pt: Yes (stay on trileptal) Patient agreeable to treatment: Yes Qualifiers: Epilepsy type: generalized idiopathic Intractability: not intractable Status epilepticus: without status epilepticus Qualified Code(s): G40.309 - Generalized idiopathic epilepsy and epileptic syndromes, not intractable, without status epilepticus Consult Discharge Plan - Plan Additional Instructions: Dr. Banuelos, psychiatrist, recommending initiation of Aristada 662mg or 884mg as an outpatient to assist with medication compliance and improved stability. Referrals: Tesfaye Sena [facility] [Outside] - 07/14/17 2:00 pm (The above appointment is with Chetan Barajas for outpatient mental health counseling services. You will also see Dai Hankins for outpatient psychiatric assessment and medication management services on 07/30/2017 at 10:00am.)
[2017-07-06] MEDS: OXcarbazepine 150 MG TABLET PO SCH ×2 (08:07→21:16)
[2017-07-06] MEDS: ARIPiprazole 10 MG TABLET PO SCH (08:07)
[2017-07-06] MEDS: diazePAM 5 MG TABLET PO SCH ×3 (08:07→21:16)
[2017-07-06] MEDS: Vitamin B Complex/Vit C/Vit E 1 EACH TABLET PO SCH (08:07)
--- NOTE | 2017-07-06 10:58 | Psychiatry Progress Note ---
Date of Encounter: 07/06/17 Time of Encounter: 10:55 Subjective Interval history: Client states he feels like "a million bucks." Seems calm. Tends to stare at times and he still has some delusional thinking but otherwise he appears to be doing well. Will likely discharge tomorrow. Pharmacy will bubble pack medications to help with compliance but this has to be done on a weekday. Family is supportive. Follow up in place. Staff continue to encourage long acting injection but client is resistant. Plan has been communicated to outpatient providers. Review of Systems Constitutional: Denies: fever, chills, weakness, weight change Eyes: Denies: eye pain, vision change Ears, Nose, Throat: Denies: ear pain, throat pain, dental pain, hearing loss, congestion Cardiovascular: Denies: chest pain, palpitations, dyspnea on exertion Respiratory: Denies: cough, dyspnea, wheezes Gastrointestinal: Denies: abdominal pain, nausea, vomiting, diarrhea, constipation Musculoskeletal: Denies: joint swelling, joint pain Neurological: Denies: headache, weakness, numbness, memory loss Psychiatric: Reports: irritability Objective: Exam Patient orientation: Yes Person, Yes Time, Yes Place Level of alertness: Alert Patient appearance: Appropriate, Well Groomed Behavior: calm, cooperative Psychomotor activity: Normal Eye contact: Intense Contact Mood description: Euthymic/stable Affect description: blunted Speech pattern: Normal rate, Normal rhythm, Normal tone Speech volume: Normal Thought process: Linear Thought content: No Suicidal ideation, No Homicidal ideation, Yes Overt delusions, Yes Paranoid delusion Perceptual disturbances: No Auditory hallucinations, No Visual hallucinations Judgment: Limited Insight: Minimal Results - Vital Signs Vital Signs: Temp Pulse Resp BP 97.1 F L 68 18 132/92 07/06/17 09:00 07/06/17 09:00 07/06/17 09:00 07/06/17 09:00 Assessment and Plan (1) Bipolar disorder, current episode manic severe with psychotic features Current visit: Yes Status: Resolved Plan: Continue hospitalization, Close observation, Suicide Precautions per unit protocol, Encourage participation in unit milieu, Group Therapy, Monitor sleep, Monitor appetite Risks, benefits, side effects, alternatives discussed w/pt: Yes Patient agreeable to treatment: Yes (2) Antipsychotics, neuroleptics, and major tranquilizers causing adverse effect in therapeutic use Current visit: Yes Status: Resolved Plan: Continue hospitalization, Close observation, Suicide Precautions per unit protocol, Encourage participation in unit milieu, Group Therapy, Monitor sleep, Monitor appetite Risks, benefits, side effects, alternatives discussed w/pt: Yes (no abnormalities) Patient agreeable to treatment: Yes Qualifiers: Encounter type: sequela Qualified Code(s): T43.505S - Adverse effect of unspecified antipsychotics and neuroleptics, sequela (3) Epilepsy Current visit: Yes Status: Acute Plan: Continue hospitalization, Close observation, Suicide Precautions per unit protocol, Encourage participation in unit milieu, Group Therapy, Monitor sleep, Monitor appetite Risks, benefits, side effects, alternatives discussed w/pt: Yes (stay on trileptal) Patient agreeable to treatment: Yes Qualifiers: Epilepsy type: generalized idiopathic Intractability: not intractable Status epilepticus: without status epilepticus Qualified Code(s): G40.309 - Generalized idiopathic epilepsy and epileptic syndromes, not intractable, without status epilepticus Consult Discharge Plan - Plan Additional Instructions: Dr. Banuelos, psychiatrist, recommending initiation of Aristada 662mg or 884mg as an outpatient to assist with medication compliance and improved stability. Referrals: Tesfaye Sena [facility] [Outside] - 07/14/17 2:00 pm (The above appointment is with Chetan Barajas for outpatient mental health counseling services. You will also see Dai Hankins for outpatient psychiatric assessment and medication management services on 07/30/2017 at 10:00am.)
[2017-07-07 08:14] VITALS: BP 128/97
[2017-07-07] MEDS: OXcarbazepine 150 MG TABLET PO SCH (08:27)
[2017-07-07] MEDS: Vitamin B Complex/Vit C/Vit E 1 EACH TABLET PO SCH (08:27)
[2017-07-07] MEDS: diazePAM 5 MG TABLET PO SCH (08:27)
[2017-07-07] MEDS: ARIPiprazole 10 MG TABLET PO SCH (08:27)
--- NOTE | 2017-07-07 10:24 | Discharge Summary ---
Date of Encounter: 07/07/17 Time of Encounter: 10:16 Diagnosis - Discharge Diagnosis (1) Bipolar disorder, current episode manic severe with psychotic features Status: Resolved (2) Antipsychotics, neuroleptics, and major tranquilizers causing adverse effect in therapeutic use Status: Resolved Qualifiers: Encounter type: sequela Qualified Code(s): T43.505S - Adverse effect of unspecified antipsychotics and neuroleptics, sequela (3) Epilepsy Status: Acute Qualifiers: Epilepsy type: generalized idiopathic Intractability: not intractable Status epilepticus: without status epilepticus Qualified Code(s): G40.309 - Generalized idiopathic epilepsy and epileptic syndromes, not intractable, without status epilepticus Medications - Discharge Medications Prescriptions: ARIPiprazole [Abilify] 20 mg PO DAILY #60 tablet OXcarbazepine [Trileptal] 300 mg PO BID #120 tablet Metoprolol [Lopressor] 25 mg PO DAILY 06/28/17 [History] lamoTRIgine [Lamictal] 100 mg PO BID 06/28/17 [History] ARIPiprazole [Abilify] 20 mg PO DAILY #60 tablet 07/07/17 [Rx] OXcarbazepine [Trileptal] 300 mg PO BID #120 tablet 07/07/17 [Rx] Vitamin B Complex/Vit C/Vit E [Stresstab] 1 each PO DAILY tablet 07/07/17 [Rx] 3 Allergy/AdvReac Type Severity Reaction Status Date / Time risperidone Allergy See Verified 06/27/17 23:47 Comments Provider Date of admission: 06/29/17 18:35 Primary care physician: PCP NONE Discharging clinician: Azucena Wiley Assessment and Plan - Patient/Caregiver Discharge Instructions Activity: resume usual activities as tolerated Diet: regular diet Additional Instructions: Dr. Banuelos, psychiatrist, recommending initiation of Aristada 662mg or 884mg as an outpatient to assist with medication compliance and improved stability. - Follow up Plan Follow up with: Tesfaye Sena [facility] [Outside] - 07/14/17 2:00 pm (The above appointment is with Chetan Barajas for outpatient mental health counseling services. You will also see Dai Hankins for outpatient psychiatric assessment and medication management services on 07/30/2017 at 10:00am.) Functional capacity at discharge: independent ambulation Overall status at discharge: Stable Disposition: Home, Self-Care Hospital Course Hospital course: Mr. Zhou is a 37 year old male who was admitted in a manic and psychotic state. He stabilized on Abilify. Family is supportive. feels safe with him in the home and staff watched client interact positively with his three children. Client is already linked with outpatient services and mental health appointments were scheduled for him prior to discharge. Client denied SI/HI/AH/ VH. Behaviorally he has been doing well on the unit. Sleeping and eating well. Compliant with medications. He has some residual delusions but reports client has some delusional thinking at baseline. Pleasant toward this credit underwriter. Client reported he was ready to go. - Time Spent with Patient Total time spent providing and/or coordinating discharge services: Quality - Multiple Antipsychotics Patient discharged on 2 or more antipsychotic medications: No Procedures - Procedures Procedures: Medication Management, Crisis Stabilization, Supportive Therapy, Group Therapy Mental Status Exam - Mental Status Exam Patient orientation: Yes Person, Yes Time, Yes Place Level of alertness: Alert Patient appearance: Appropriate, Well Groomed Behavior: calm, cooperative Psychomotor activity: Normal Eye contact: Maintains Eye Contact Mood description: Euthymic/stable Affect description: congruent with mood, full range Speech pattern: Normal rate, Normal rhythm, Normal tone Speech Volume: Normal Thought process: Linear, Goal Oriented Thought Content: No Suicidal ideation, No Homicidal ideation, No Overt delusions Perceptual Disturbances: No Auditory hallucinations, No Visual hallucinations Judgment: Fair Insight: Partial
== END 2017-07-07 11:33 | disposition home or self-care (01) | DRG 885 ==
LOC: SUATTDRO 18:35 → 1ANU 18:35
PROVIDERS: ADMIT Psychiatry & Neurology Psychiatry; ATTEND Psychiatry & Neurology Forensic Psychiatry